=== PATIENT | female | born 1955 | race Hispanic/Latino ===

== ENCOUNTER 2017-05-28 06:57 | Day surgery (SDC) | payer MEDICAID ==
[~2017-05-28] VITALS: Ht 165.1 cm; Wt 75.8 kg
[~2017-05-28 06:57] MED LIST: SODIUM CHLORIDE 0.9% 1000ML 1,000 ML IV ONE
[2017-05-28 07:11] VITALS: BP 155/81
[2017-05-28] MEDS ORDERED: CANA1TAB2 PO (07:54)
[2017-05-28] MEDS ORDERED: GABA-531 PO (07:54)
[2017-05-28] MEDS ORDERED: INSU100I24 SQ (07:54)
[2017-05-28] MEDS ORDERED: BACL10TA PO (07:54)
[2017-05-28] MEDS ORDERED: BUSP10TA3 PO (07:54)
[2017-05-28] MEDS ORDERED: OMEP40CA37 PO (07:54)
[2017-05-28] MEDS ORDERED: ASPI-555 PO (07:54)
[2017-05-28] MEDS ORDERED: CLON0.2T PO (07:54)
[2017-05-28] MEDS ORDERED: SIMV10TA6 PO (07:54)
[2017-05-28] MEDS ORDERED: HYDR-3421 PO (07:54)
[2017-05-28] MEDS ORDERED: FLUO90CA4 PO (07:54)
[2017-05-28] MEDS ORDERED: PROPOFOL 10 MG/ML 20ML VIAL IV ONE (09:06)
[2017-05-28 09:45] VITALS: BP 120/59
== END 2017-05-28 10:20 | disposition home or self-care (01) ==
LOC: DAH 06:57 → ENDO 06:57
PROVIDERS: ATTEND Internal Medicine
DX: R10.30 Lower abdominal pain, unspecified (principal); K92.2 Gastrointestinal hemorrhage, unspecified; E11.9 Type 2 diabetes mellitus without complications; I10 Essential (primary) hypertension; F41.9 Anxiety disorder, unspecified; F32.9 Major depressive disorder, single episode, unspecified; D64.9 Anemia, unspecified; Z90.710 Acquired absence of both cervix and uterus; Z98.890 Other specified postprocedural states; Z79.899 Other long term (current) drug therapy; Z79.84 Long term (current) use of oral hypoglycemic drugs; K31.89 Other diseases of stomach and duodenum; K63.89 Other specified diseases of intestine; K64.8 Other hemorrhoids; K64.4 Residual hemorrhoidal skin tags
CPT/HCPCS: 43239; 45378; 82948 ×2; 88305; 88312; 88342; A4606; J2704; J7030